=== PATIENT | female | born 1960 | race Native Hawaiian/Other Pacific Islander ===

== ENCOUNTER 2016-06-22 13:47 | Outpatient (CLI) | payer BC | END 2016-06-22 20:08 | disposition home or self-care (01) | LOC: MRI 13:47 | DX: M25.562 Pain in left knee (principal) ==

== ENCOUNTER 2017-07-29 14:21 | Outpatient (CLI) | payer BC | END 2017-07-29 15:30 | disposition home or self-care (01) | LOC: RAD 14:21 | DX: M79.672 Pain in left foot (principal) ==